=== PATIENT | male | born 1935 | race Caucasian/White ===

== ENCOUNTER → 2017-09-24 | Day surgery (SDC) | payer OTHER ==
[~2017-09-24] MED LIST: PROPOFOL 40 ML IV
[2017-09-24] MEDS: IV RINGERS,LACTATED 1000ML 1,000 ML IV (13:54)
== END | disposition home or self-care (01) ==
LOC: ENDOS 12:35
DX: K57.30 Diverticulosis of large intestine without perforation or abscess without bleeding (principal); K64.0 First degree hemorrhoids; K29.50 Unspecified chronic gastritis without bleeding; D50.9 Iron deficiency anemia, unspecified; D62 Acute posthemorrhagic anemia; Z91.040 Latex allergy status; M62.838 Other muscle spasm; E78.00 Pure hypercholesterolemia, unspecified; I51.9 Heart disease, unspecified; Z83.3 Family history of diabetes mellitus; Z80.0 Family history of malignant neoplasm of digestive organs; Z80.3 Family history of malignant neoplasm of breast; Z82.3 Family history of stroke; Z83.71 Family history of colonic polyps; Z87.891 Personal history of nicotine dependence; Z79.82 Long term (current) use of aspirin; Z79.899 Other long term (current) drug therapy; Z95.1 Presence of aortocoronary bypass graft; Z90.49 Acquired absence of other specified parts of digestive tract; Z90.79 Acquired absence of other genital organ(s)
CPT/HCPCS: 43235; J2704

== ENCOUNTER → 2020-02-17 | Outpatient (CLI) | payer MEDICARE ==
[2017-09-24 15:00] VITALS: BP 140/65
[~2020-02-17] MED LIST changes: +ATOR40TA59 PO; +CARV25TA PO; +LISI-338 PO; +LORA10TA3 PO; -PROPOFOL 40 ML IV
--- NOTE | 2020-02-17 15:22 | KCIC ---
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 Instructions: / History: TECHNIQUE: SHOULDER 2+V LEFT Number of different views (projections): 3 COMPARISON: None FINDINGS: Narrowing of the glenohumeral joint with small marginal osteophytes at the inferior margin of the glenoid. Moderate hypertrophic acromioclavicular degenerative changes. Chronic reactive changes in the greater tuberosity. Moderate to severe narrowing of the acromiohumeral interval compatible with chronic rotator cuff pathology. Median sternotomy wires and paramediastinal surgical clips. Aortic atherosclerotic calcification. IMPRESSION: Degenerative changes and sequelae of chronic rotator cuff pathology as described. Electronically signed by: Alonzo White DO (02/17/2020 3:19 PM) [id number]
== END | disposition home or self-care (01) ==
LOC: KCIC 13:39
PROVIDERS: ATTEND Family Medicine
DX: M19.012 Primary osteoarthritis, left shoulder (principal); M25.712 Osteophyte, left shoulder; I70.0 Atherosclerosis of aorta
CPT/HCPCS: 73030

== ENCOUNTER → 2021-07-03 | Outpatient (CLI) | payer MEDICARE ==
[2017-09-24 15:00] VITALS: BP 140/65
[~2021-07-03] MED LIST changes: -LISI-338 PO; +LISI5TAB15 PO
--- NOTE | 2021-07-03 16:30 | KCIC ---
AP and Lateral Views of the Chest 07/03/2021 10:10 AM Indication: Reason: BRONCHITIS / Spl. Instructions: Ongoing bronchitis for 2 months. / History: Comparison: None Findings: Nodular opacities noted in left upper lobe. No pneumothorax or effusion is seen. Heart size is normal. Prior median sternotomy noted. Aortic calcification is seen. No acute osseous abnormality is identified. Impression: Nodular opacities in the left upper lung. Findings could be inflammatory or infectious., Or represent the sequela of granulomatous disease. A neoplastic etiology low significantly less likel y is not excluded. Recommend CT for further characterization. Electronically signed by: Rubin Montes MD (07/03/2021 4:28 PM) [id number]
== END ==
LOC: KCIC 10:05
PROVIDERS: ATTEND Family Medicine
DX: R91.8 Other nonspecific abnormal finding of lung field (principal); I70.0 Atherosclerosis of aorta; J40 Bronchitis, not specified as acute or chronic
CPT/HCPCS: 71046

== ENCOUNTER → 2021-07-08 | Outpatient (CLI) | payer MEDICARE ==
[2017-09-24 15:00] VITALS: BP 140/65
--- NOTE | 2021-07-08 10:44 | KCIC ---
EXAM: Chest CT without intravenous contrast. HISTORY: Abnormal chest radiograph. TECHNIQUE: Computed tomographic images of the chest were obtained without contrast. Multiplanar refor matting was performed. *One or more of the following individualized dose reduction techniques were utilized for this examina tion: 1. Automated exposure control. 2. Adjustment of the mA and/or kV according to patient size. 3. Use of iterative reconstruction technique. COMPARISON: 07/03/2021. FINDINGS: The heart is mildly enlarged. 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 There is an ectatic ascending aorta measuring 1.9 cm. There is aortic and aortic branc h vessel atherosclerosis. There is a common origin of the right innominate and left common carotid ar umang, a normal aortic arch branching variant. There is no lymphadenopathy. There is no pneumothorax o r pleural effusion. There are scattered solid and groundglass nodular opacities within the left upper lobe, the largest o f which measures 1.3 cm. The imaging appearance favors an infectious or inflammatory etiology. There is also left greater than right lower lobe and lingular interstitial infiltrate or chronic interstiti al change. There are few calcified granulomas. There is no consolidation. There are a few tiny hypodense lesions within the liver, too small to characterize. There is renal at rophy. There is degenerative change involving the spine. There is no acute or suspicious osseous find ing. IMPRESSION: 1. Solid groundglass nodular opacities within the left upper lobe, likely infectious or inflammatory in etiology. The largest nodular opacity measures 1.3 cm. Short-term follow-up in 3 months is recomme nded to confirm resolution. PET/CT may be indicated if there is interval progression. 2. Bilateral lower lobe and lingular interstitial infiltrate or chronic interstitial changes. There i s no consolidated pneumonia. 3. Cardiomegaly and ectatic ascending aorta. 4. Tiny hypodense lesions within the liver. In the absence of known malignancy, these are likely cyst s. Electronically signed by: Inna Rodney MD (07/08/2021 10:42 AM) [id number]
== END ==
LOC: KCIC CT 09:47
PROVIDERS: ATTEND Family Medicine
DX: R91.8 Other nonspecific abnormal finding of lung field (principal); I51.7 Cardiomegaly; I77.819 Aortic ectasia, unspecified site; K76.89 Other specified diseases of liver; J84.10 Pulmonary fibrosis, unspecified; R93.89 Abnormal findings on diagnostic imaging of other specified body structures
CPT/HCPCS: 71250

== ENCOUNTER → 2021-09-27 | Outpatient (CLI) | payer MEDICARE ==
[2017-09-24 15:00] VITALS: BP 140/65
--- NOTE | 2021-09-27 13:56 | KCIC ---
CT THORAX WO dated 09/27/2021 10:47 AM Indication:Reason: Follow up abnormal CT chest. / Spl. Instructions: / History: Nodular densities Lt . lobe, open heart surgery 2003. Comparison: CT 07/08/2021. Technique: Helical noncontrast images were performed. Sagittal and coronal reconstructions were obtai veronica. One or more of the following individualized dose reduction techniques were utilized for this examinat ion: 1. Automated exposure control 2. Adjustment of the mA and/or kV according to patient size 3. Use of iterative reconstruction technique Findings: Scattered opacities shown on the prior study in the lateral left upper lobe appear to have regressed. However, there is a larger new solid area shown posteriorly in the left upper lobe and abutting the pleura. This measures about 4.3 cm medial laterally and 2.7 cm AP. Some increased markings are still shown, mostly peripherally, in both lungs. These appear similar to the prior exam. No significant new mass or nodule is seen elsewhere. The central airways show no obstruction. No enlarged lymph nodes a re seen. There is extensive coronary artery calcification and evidence of prior coronary bypass graft ing. Images through the upper abdomen show small cysts in the liver. No significant new abnormality is see n. IMPRESSION: Previously described left upper lobe abnormality has partly resolved, but there is a new larger more consolidated abnormality seen posteriorly in the left upper lobe. The appearance is nonspecific. Rapi d appearance might favor a benign process such as focal pneumonia. Neoplasm is also a consideration. Options include short-term follow-up in 1-3 months, PET/CT in the shorter term, or percutaneous biops y. The abnormality will likely have at least some activity on PET CT images, even if benign. Electronically signed by: Jay Bee Jr., MD (09/27/2021 1:54 PM) [email or web address]
== END ==
LOC: KCIC CT 10:42
PROVIDERS: ATTEND Internal Medicine Pulmonary Disease
DX: I25.10 Atherosclerotic heart disease of native coronary artery without angina pectoris (principal); K76.89 Other specified diseases of liver; R93.89 Abnormal findings on diagnostic imaging of other specified body structures; Z95.1 Presence of aortocoronary bypass graft
CPT/HCPCS: 71250